=== PATIENT | female | born 1990 | race Caucasian/White ===

== ENCOUNTER → 2017-02-22 | Outpatient (CLI) | payer OTHER ==
[2017-02-22 17:08] LABS: BASOPHILS # (AUTO) 0.02 10*3/UL; BASOPHILS % (AUTO) 0.2 % (0-1); EOSINOPHILS # (AUTO) 0.31 10*3/UL; EOSINOPHILS % (AUTO) 2.9 % (0-8); HEMATOCRIT 40.6 % (37.0-47.0); HEMOGLOBIN 13.3 g/dL (12.0-16.0); LYMPHOCYTES # (AUTO) 1.89 10*3/uL; MEAN CORPUSCULAR HEMOGLOBIN 28.1 PG (27-31); MEAN CORPUSCULAR HGB CONC 32.8 g/dL (33-37); MEAN CORPUSCULAR VOLUME 85.8 FL (81-99); MEAN PLATELET VOLUME 9.2 FL (7.4-12.2); MONOCYTES # (AUTO) 0.76 10*3/UL (0.3-0.8); NEUTROPHILS # (AUTO) 7.84 10*3/UL; NEUTROPHILS % (AUTO) 72.3 % (50-80); RED BLOOD COUNT 4.73 10^6/uL (4.20-5.40)
[2017-02-22 17:09] LABS: PLATELET MORPHOLOGY COMMENT NORMAL MORPHOLOGY (NORM); RBC MORPHOLOGY COMMENT NORMAL MORPHOLOGY (NORM); WBC MORPHOLOGY COMMENT NORMAL MORPHOLOGY (NORM)
[2017-02-22 17:46] LABS: HIV ANTIBODY NEGATIVE (N); HIV-1 P24 ANTIGEN NEGATIVE (N)
[2017-02-22 18:09] LABS: BLOOD UREA NITROGEN 11 mg/dL (7-22); BUN/CREATININE RATIO 18.33 (6-20); CALCIUM 9.9 mg/dL (8.7-10.7); EST GLOMERULAR FILTRATION > 60 (>60 ml/min/1.73m(2)); SERUM ALBUMIN 4.3 g/dL (3.5-4.8)
== END ==
LOC: MOB LAB 16:07
PROVIDERS: ATTEND Student in an Organized Health Care Education/Training Program
DX: R10.84 Generalized abdominal pain (principal); R53.83 Other fatigue; R63.5 Abnormal weight gain; Z11.3 Encounter for screening for infections with a predominantly sexual mode of transmission
CPT/HCPCS: 36415; 80053; 82306; 84443; 85025; 86703; 86780; 86803

== ENCOUNTER → 2017-02-24 | Outpatient (CLI) | payer OTHER ==
--- NOTE | 2017-02-24 16:38 | DI ---
US PELVIC-TRANSVAGINAL, US PELVIC COMPLETE (NON OB),02/24/2017 1:59 PM: Clinical History: Menometrorrhagia Previous Exam: October 12, 2006 Findings: Multiple transabdominal and endovaginal grayscale and color Doppler sonographic images are obtained t hrough the pelvis demonstrating a normal uterus. The cervix is long and closed measuring 4 cm in vipul th. The endometrial stripe measures 11 mm. The uterus measures 8.9 x 4.1 x 4.8 cm with normal shape. The right ovary measures 3.8 x 2.2 x 2.4 cm with normal Doppler flow. The left ovary measures 2.9 x 2.6 x 3.5 cm also with a normal sonographic appearance. Impression: Normal pelvic ultrasound.
== END ==
LOC: US 13:47
PROVIDERS: ATTEND Student in an Organized Health Care Education/Training Program
DX: N92.1 Excessive and frequent menstruation with irregular cycle (principal); R10.30 Lower abdominal pain, unspecified
CPT/HCPCS: 76830; 76856

== ENCOUNTER 2017-05-08 11:55 | Emergency (ER) | payer OTHER ==
[2017-05-08 12:06] VITALS: RESP 16; TEMP 98.3
--- NOTE | 2017-05-08 12:19 | PDOC ---
Foot / Ankle Injury - General Chief Complaint: Lower Extremity Problem/Injury Stated Complaint: injuried left foot Date Seen by Provider: 05/08/17 Time Seen by Provider: 12:00 Source: POSITIVE: Patient Exam Limitations: POSITIVE: No limitations Nurse's Notes Reviewed & Considered: Yes - History of Present Illness Initial Comments: The patient is a 27-year-old female who presents to the emergency department with left foot and ankle pain. She states that last night she tripped on a short stairway and fell twisting her left foot and ankle. Since then she has been unable to bear much weight on the left foot and ankle and has pain with any range of motion. She has been taking ibuprofen as well as some leftover hydrocodone without any pain relief. She denies any other associated injuries or complaints. Have you received a tetanus shot in the past 10 years?: Yes - Patient Allergies Allergies/Adverse Reactions: Allergies Allergy/AdvReac Type Severity Reaction Status Date / Time No Known Allergies Allergy Verified 05/08/17 11:58 - Patient Home Medications Home Medications: Home Medications Esomeprazole Magnesium [Nexium 24hr] 1 cap PO DAILY cap 05/03/17 Multivitamin [Multi-Vitamin Daily] 1 each PO DAILY tab 05/03/17 HYDROcodone/APAP 7.5/325 Tab [Highland 7.5/325 Tab] 1 each PO Q6H PRN #10 tablet 05/08/17 Past Medical History - heen HEENT History: Other (please comment) Additional HEENT History: contacts Cardiovascular History: Denies History Respiratory History: Denies History Gastrointestinal History: GERD, Other (please comment) Additional Gastrointestinal History: some heartburn, see home meds Genitourinary History: Kidney Stones Additional Genitourinary History: HAD SURGERY TO REMOVE KIDNEY STONE Endocrine History: Denies History Musculoskeletal History: Denies History Prosthesis or Implant: No Neurological History: Denies History Blood Disorders: Denies History Psychiatric History: Depression Additional Psychiatric History: TREATED FOR DEPRESSION 10 YEARS AGO. History of Sexually Transmitted Diseases: No Female Reproductive History: Denies History Obstetrical History: Denies History Cancer History: Denies History In Past Year Been Physically Harmed or Verbally Threatened: No History of MDRO: No History of Other Communicable Diseases: No Tobacco Use: Current Every Day Smoker Alcohol Use: Occasionally Substance Use Type: None Previous Surgical History: Yes Type / Date of Surgery: kidney stone removed; tubes tied;. RHINOPLASTY, APPY Anesthesia Reactions: No Malignant Hyperthermia: No Significant Family History: Heart disease, Cancer, Diabetes, Other (please comment) Additional Family History: thyroid issues, breast ca, cervical ca Past Medical History Reviewed: Reviewed - No Changes ROS - Limitations ROS Limitations: No Limitations (Review of systems otherwise noncontributory) Foot / Ankle Exam - General Appearance General Appearance: POSITIVE: Alert, Cooperative, No Acute Distress - Extremities Foot: POSITIVE: Other (examination left foot does reveal some tenderness to the lateral aspect of the midfoot, no obvious swelling or deformity, normal cap refill and sensation in her toes) Ankle: POSITIVE: Other (examination of the ankle on the left reveals swelling over the lateral malleolus with associated tenderness over the talofibular leg movement, no medial tenderness, no tenderness proximal in the leg) Gait: POSITIVE: Limited by Pain Neuro: POSITIVE: Sensation Normal, Motor Normal Vascular: POSITIVE: No Vascular Compromise Foot / Ankle Progress - Results Reviewed by me Radiology Findings: X-ray of the left foot reveals a likely avulsion fraction of the midfoot. X-ray of the ankle reveals a small rounded calcification just distal to the distal tibia over the medial malleolus with no evidence of fracture or dislocation. - Patient's Progress MDM / ED Course: X-ray of her left foot does reveal what appears to be an avulsion fracture of the mid foot likely caused secondary to sprain. She was placed in a cam walker boot for comfort. She has crutches that she can use to assist with ambulation. She was advised that she can bear weight as tolerated. She will continue ice and elevation as well as ibuprofen 600 mg every 6 hours as needed for pain. She was also given Highland 7.5/325 which she can take as needed for severe pain. She is advised return to the emergency room if she develops increased pain or numbness, worsening or change in symptoms. She is advised follow-up with orthopedic surgery in 3-5 days. - Consult Counseled: POSITIVE: Patient, RE: Radiology Results, RE: DX, RE: Need for F/U Patient Care Time - Estimated PCT Patient Care Time (In Minutes): 20 Vital Signs - Recent Vital Signs Vital Signs: Vital Signs (Last 8 hours) Temp Pulse Resp BP Pulse Ox 05/08/17 11:57 98.3 F 67 16 130/62 97 - VS Reviewed Vital Signs Reviewed: Yes Discharge Clinical Impression: Sprain of ankle, Foot sprain Discharge Disposition: Discharged to Home Condition: Good Prescriptions / Orders: HYDROcodone/APAP 7.5/325 Tab [Highland 7.5/325 Tab] 1 each PO Q6H PRN #10 tablet PRN Reason: Pain Patient Instructions Given at Discharge: Ankle Sprain (ED), Foot Sprain (ED) Additional Instructions: The x-ray of your foot does reveal a small chip fracture in one of the bones on her foot which is most likely secondary to a sprain (ligament injury). There was no obvious fracture in the ankle on x-ray. Recommend Cam Walker boot. Crutches to assist with ambulation as needed. You can bear weight as tolerated. Ice and elevate the left foot. Continue ibuprofen 600 mg every 6 hours as needed for pain. Highland 7.5/325 one every 6 hours as needed for pain. Return to the emergency room if increased pain, numbness, worsening or change in symptoms. Recommend follow-up with orthopedics (Dr. Norman), call tomorrow to schedule follow-up. Follow Up With: DANICA VILLALTA [Primary Care Provider] -
--- NOTE | 2017-05-08 21:57 | DI ---
XR ANKLE COMPLETE MIN 3VW,05/08/2017 12:02 PM: Clinical History: Fell downstairs with left ankle pain. Previous Exam: None at this facility. Findings: 3 views of the left ankle are obtained, and demonstrate anatomic alignment without fractures. There i s mild prominence of the surrounding soft tissues. Impression: No fracture.
--- NOTE | 2017-05-08 22:22 | DI ---
XR FOOT COMPLETE MIN 3VW,05/08/2017 12:02 PM: Clinical History: Fell down stairs. Previous Exam: None at this facility. Findings: 3 views of left foot are obtained, and demonstrate anatomic alignment without fractures. There is a 1 3 x 6 mm density involving the first metatarsal most consistent with a bone island. There is a narrow zone of transition and no evidence of periosteal reaction or soft tissue mass or cortical breakthrou gh. Surrounding soft tissues are unremarkable. Impression: 1. 13 x 6 mm density involving the cortex of the left first metatarsal most consistent with a bone is land. If there is no tenderness to palpation over this area, this can likely be ignored is a benign f inding.
== END 2017-05-08 13:22 | disposition home or self-care (01) ==
LOC: ER 11:55
DX: S93.402A Sprain of unspecified ligament of left ankle, initial encounter (principal); S93.602A Unspecified sprain of left foot, initial encounter; W10.8XXA Fall (on) (from) other stairs and steps, initial encounter
CPT/HCPCS: 73610; 73630; 99282

== ENCOUNTER 2017-06-20 06:47 | Observation (INO) | payer OTHER ==
[~2017-06-20 06:47] MED LIST: LIDOCAINE W/ SODIUM BICARB 0.5 ML SYR ONE; Lactated Ringers 1,000 ML PRIMARY IV ONE; Sodium Chloride 0.9% 100 ML IV ONE
[2017-06-20] MEDS ORDERED: BUPIVACAINE 0.25% W/ EPI - 10 ML VIAL ONE (06:55)
[2017-06-20] MEDS ORDERED: LIDOCAINE HCL 2 % 10 ML JELLY URO-JECT TOPICAL ONE (06:56)
[2017-06-20 07:05] LABS: URINE SPECIFIC GRAVITY - MAN 1.022
[2017-06-20] MEDS ORDERED: ROCURONIUM 10 MG/1 ML - 5 ML VIAL IVP ONE (07:06)
[2017-06-20] MEDS ORDERED: fentaNYL Inj 250 MCG/5 ML VIAL ONE (07:08)
[2017-06-20] MEDS ORDERED: MIDAZOLAM 5 MG/1 ML ONE (07:08)
[2017-06-20] MEDS ORDERED: LIDOCAINE MPF 2% - 5 ML (20 MG/1 ML) ONE (07:09)
[2017-06-20 07:35] LABS: HEMOGLOBIN 14.1 g/dL (12.0-16.0); MEAN CORPUSCULAR HEMOGLOBIN 29.3 PG (27-31); MEAN CORPUSCULAR HGB CONC 34.4 g/dL (33-37); MEAN CORPUSCULAR VOLUME 85.1 FL (81-99); MEAN PLATELET VOLUME 9.5 FL (7.4-12.2); RED BLOOD COUNT 4.82 10^6/uL (4.20-5.40)
[2017-06-20] MEDS ORDERED: LIDOCAINE W/ SODIUM BICARB 0.5 ML SYR ONE (07:40)
[2017-06-20] MEDS ORDERED: Lactated Ringers 2,000 ML PRIMARY IV ONE (08:16)
[2017-06-20] MEDS ORDERED: ePHEDrine Inj 50 MG/ML AMP ONE (08:35)
[2017-06-20] MEDS ORDERED: Sodium Chloride 0.9% vial 10 ML ONE (08:38)
[2017-06-20] MEDS ORDERED: PHENYLEPHRINE 10,000 MCG/1 ML VIAL ONE (08:38)
[2017-06-20 08:52] LABS: BILIRUBIN,URINE NEGATIVE (NEG); CLARITY,URINE CLEAR (CLEAR); COLOR,URINE YELLOW; GLUCOSE, URINE (UA) NEGATIVE (NEG); NITRATE,URINE NEGATIVE (NEG); OCCULT BLOOD,URINE Trace-intact (NEG); PROTEIN,URINE NEGATIVE (NEG); UROBILINOGEN,URINE 0.2 mg/dL (0.2)
[2017-06-20] MEDS ORDERED: KETAMINE 100 MG/1 ML - 5 ML ONE (08:56)
[2017-06-20 09:01] LABS: SQUAMOUS EPITHELIAL CELL,UR RARE; URINE SAMPLE TYPE CATH SPECIMEN
[2017-06-20] MEDS ORDERED: Opium-Belladonna 60-16.2mg 1 EACH SUPP.RECT RECTAL ONE (09:07)
[2017-06-20] MEDS ORDERED: ONDANSETRON 4 MG/2 ML VIAL ONE (09:27)
[2017-06-20] MEDS ORDERED: KETOROLAC 30 MG/1 ML VIAL ONE (09:27)
[2017-06-20] MEDS ORDERED: SUGAMMADEX SODIUM 200 MG/2 ML VIAL IV ONE (09:27)
[2017-06-20] MEDS ORDERED: HYDROmorphone 2 MG/1 ML ONE (09:36)
[2017-06-20] MEDS ORDERED: Lactated Ringers 1,000 ML PRIMARY IV ONE (10:14)
[2017-06-20] MEDS ORDERED: GLYCOPYRROLATE 0.2 MG/1 ML VIAL ONE (10:27)
--- NOTE | 2017-06-20 10:42 | OB.OP.NOTE ---
Operative Report Surgeon: Stephen Four H Agent: Michael Yarbrough MD Anesthesia Type: General, Local (For acrochordon or skin tag) Anesthesia Provider: Cy Ramirez CRNA Surgery Date: 06/20/17 Preoperative Diagnosis: Menometrorrhagia, dysmenorrhea, pelvic pain, dyspareunia ;. skin tag that occasionally bleeds with shaving;. Patient desires definitive management with hysterectomy. Patient desires removal of skin tag Postoperative Diagnosis: Same Procedure: Robotic-assisted laparoscopic hysterectomy, bilateral salpingectomy, lysis of dense adhesions from bowel to cornua of uterus bilaterally. Cystoscopy. Excision of acrochordon left groin Estimated Blood Loss (mL): 75 Fluids: 2200 mL in operating room. 2000 mL in PACU prior to operating room. 500 mL of urine in operating room Complications: None apparent No evidence of bowel or bladder injury Of note, patient did acquire a first-degree significant sunburn on the upper thighs bilaterally the day before surgery when she spent the day at the [facility]. No blistering-therefore no second-degree sunburn noted. Slightly tender to palpation but no extreme edema of upper thighs noted prior to or post surgery. SCDs were used starting before surgery and before anesthesia. Findings at Surgery: Dense adhesions from bowel and adipose tissue to cornua bilaterally Ovaries appeared normal, white glistening pre-and post hysterectomy. Right ovarian cyst noted Cystoscopy showed good spill from ureteral orifices in the bladder on right and left side and good bubble at bladder dome noted. Small acrochordon excised using local anesthetic at end of procedure Indications for the Procedure: The patient is a 27-year-old 0-2 LMP 06/02/2017 using a bilateral tubal ligation for contraception who presents today for hysterectomy for menometrorrhagia and dysmenorrhea. Since that time, patient has thought about her options that we discussed for management and the patient has decided that she would like a hysterectomy for definitive management for her menometrorrhagia and dysmenorrhea as well as the patient brought up today that she has some chronic pelvic pain that can be positional and also significant dyspareunia or pain with intercourse. The patient states that she often has pelvic pain even not during her menses and she has pain with intercourse that at times can be positional but other times it is not and is every time. Therefore the patient has thought about her options and a hysteroscopy D&C with endometrial ablation was initially thought to be her choice for taking care of her MMR but since we have spoken in April 2017, the patient has decided upon definitive management. The patient has spoken with many of her friends and her mother who has had a hysterectomy and has decided that this would be the best route for her. The patient did watch a couple of YouTube videos showing a hysterectomy and a robotic-assisted laparoscopic hysterectomy and decided that this is the route she would like to go. The patient also has a small skin tag in her left groin that often bleeds when she shaves in that area or gets caught on her underwear. She would like this excised. Description of Procedure: The patient was brought to the operating room after the risks, benefits, alternatives and indication of a robotic laparoscopic hysterectomy and bilateral salpingectomy and excision of skin tag or acrochordon was discussed with the patient. Of specific note, the patient spent the day at the [facility] yesterday and acquired a first-degree sunburn of her upper legs bilaterally. No blisters. We discussed that if her sunburned did cause blistering, she may have increased pain in the low risk for infection. Patient expressed understanding. We discussed this for several minutes and decided to proceed with a hysterectomy. The patient was brought to the operating room and placed on the operating table. The patient underwent general endotracheal anesthesia without complications. The patient was placed in yellowfin stirrups. SCDs had RD been placed and started. An exam under anesthesia was completed and her cervix and uterus were palpated. Additionally, 200 g of Cytotec that was placed by the patient the night before was removed. Of note, the patient also did place a scopolamine patch behind her left ear. The patient was prepped and draped in a sterile fashion. A timeout was completed and the patient and procedures were identified. Attention was turned to the patient's perineum. A Palafox catheter was inserted through the patient's urethra. Clear yellow urine streamed through the Palafox catheter. A weighted speculum was placed posteriorly and a Jovita retractor was placed anteriorly and the cervix was visualized and a single-tooth tenaculum was placed on the anterior lip of the cervix. The uterus was sounded to 8-1/2 cm. An 8 cm balloon was chosen for the uterine manipulator. A medium collar was chosen in viewing the cervix. The uterine retractor was assembled and then placed through the patient's cervix and the balloon was insufflated. I then placed the collar around the patient's cervix. I checked to ensure that the collar was 360 circumferentially around the patient's cervix and it was. Gloves were removed and changed. Attention was then turned to the patient's abdomen. Local anesthetic was injected infraumbilically. A vertical incision was made infraumbilically. Under direct visualization with the scope in place, the trocar and sleeve was placed infraumbilically into the abdomen. The trocar was removed and the scope was placed again and we were intra-abdominal. CO2 gas was insufflated and the patient was placed in Trendelenburg. Attention was then turned to the right lateral sidewall and the skin was injected with the local anesthetic and then an incision was made and then under direct visualization a trocar and sleeve was placed. The sleeve was left in place and the trocar removed. The same was done on the left lateral sidewall. We then took the scope and placed it through the left lateral sidewall port and visualized the infraumbilical port and there were no adhesions and no bowel adhesions. The robot was then moved into position. The robot was docked with the infraumbilical port for the scope and then the right and left lateral sidewall ports. The monopolar scissors was placed in the right lateral port and the bipolar gyrus was placed in the left lateral port. The above was done under direct visualization. I then went over to the operating console. Photographs were taken. Adhesions of bowel to the left and right cornea were noted. Actually the bowel was not adhesed to the cornua but some fatty tissue from the bowel was actually attached. The right ovary was noted to have a cyst present. The left ovary was noted to be normal. Both were normal with white glistening in appearance. After the photographs were taken, the bipolar gyrus was used to cauterize the adhesions to the left cornua and then the monopolar scissors were used to remove the adhesions and then the bowel and fatty tissue was allowed to drop out of the way. There did not appear to be any instance where I was close to the bowel during cautery. The same was done on the right cornua although the adhesion was not quite as dense. The left fallopian tube was then identified including the fimbria. The fallopian tube was adhesed to the left ovary. The adhesions were taken down and the left fallopian tube which was status post a tubal ligation was almost completely excised but left in place secondary to not being able to remove the fallopian tube all the way to the cornua secondary to being status post a bilateral tubal ligation. The fallopian tube would later be removed after the hysterectomy was completed and the uterus was removed so that the fallopian tube would not be lost in the pelvis. After removal of the left fallopian tube, the left ovary still appeared vascular and was hemostatic. Attention was then turned to the right fallopian tube. Again, the fallopian tube was adhesed to the ovary but not quite as extensive. The fallopian tube was excised all the way to the cornua and remained in place. The right ovary appeared intact and vascular with white glistening. The round ligament on the patient's left side was then cauterized and then incised. Then the utero-ovarian complex was cauterized and incised. The ovary was free and would be spared. The round ligament on the patient's right side was then cauterized and then incised. The utero-ovarian complex was cauterized and incised. The right ovary was free and would be spared also. The uterine vessels on the left side of the uterus were skeletonized and bovied. The same was done on the right side of the uterus where the vessels were skeletonized and bovied. Using the Martha ring to identify where the cervix was and the cervical vesicle tissue, a bladder flap was created. Then, the uterine vessels on the right left side were then skeletonized more and bovied. There was good hemostasis. At this time, a vaginal incision was made anteriorly and the blue Martha ring was visualized. The incision was made 180 to 9:00 and the 3:00 anteriorly. The uterus was then anteflexed and the vaginal incision was made posteriorly and the Martha ring was then visualized. The vaginal incision was then made 180 posteriorly and therefore 360 circumferentially. The uterus and cervix as well as the right fallopian tube was then removed through the vagina. The left fallopian tube was then removed/excised/cauterized from the last remaining small amount of tissue that it was attached to and then the left fallopian tube was also removed through the patient's vagina. All would be sent to pathology. Along the posterior cuff, a few areas were bovied secondary to bleeding. There was relatively good hemostasis. The suction wet cleaner machine was then placed through the right lateral port and irrigation was completed and then suction of the fluid. A 0-V lock suture 9 inch was placed through the vagina and then the vaginal cuff was closed allowing for good hemostasis. The V lock suture was used to close the vaginal cuff in the usual fashion. From the left side to the right side and then back to the midline. There appeared to be good hemostasis. The ovaries were visualized and photographs were taken and they appeared viable. The cuff was examined and there was good hemostasis. From the vaginal side, there was no bleeding and only minimal dark old blood was noted with a gentle sponge stick swab. A B&O suppository was placed. Xylocaine was placed in the patient's urethra for the cystoscopy after the Palafox catheter was removed. Gowns and gloves were changed. Attention was turned to the patient's abdomen. The robot was undocked. The scope was placed in the lateral port and a grasper was placed in the infraumbilical port and the needle from the V lock suture was visualized and grasped and removed through the infraumbilical port. Attention was then turned to the ports that were left in place. Gas was turned off. CO2 gas was allowed to escape through the 3 ports and then the ports were removed. S hook retractors were then used to visualize the fascia infraumbilically. 0 Vicryl suture on a UR 6 needle was used to place a [id number] suture through the fascia that was grasped with small Slemp clamps. The Arthur clamps were then removed and the [id number] suture was tied and there was good closure of the fascia. Then 4-0 Monocryl suture was used to close the subcutaneous tissue after cleaning the 3 port sites. Then 2-0 Stratafix suture was used to close the subcuticular sites 3. Then Steri-Strips and dressings were applied. A cystoscopy was completed. Indigo carmine was not injected. After several minutes, good spill from the left and right ureteral orifice was visualized into the bladder. Also, the bladder dome had a good bubble therefore signifying that the bladder was intact. The bladder was allowed to empty via the cystoscope. The cystoscopy was completed noting that there was good spill. The acrochordon that was in the patient's left groin was identified. The area was injected with local. I then excised the acrochordon and then put one simple interrupted suture of 4-0 Monocryl to allow for hemostasis and approximation of the skin. The acrochordon would be sent to pathology. The procedure was completed. Punch lap and needle counts were correct 2. The patient was awakened from her general endotracheal anesthesia without complication. The patient was brought to the PACU in stable condition. Of significant note, anesthesia noted that there was some bradycardia and with the heart rate below 50, there were intermittent PVCs and a right bundle-branch block was noted intermittently. Robinul was administered and the patient's heart rate increased to around 100 which was expected and the right bundle branch block resolved. This will be followed as the patient will be admitted for 23 hour observation. I will speak with the hospitalist. Plan: Of note, anesthesia noted that there was some bradycardia and with the heart rate below 50, there were intermittent PVCs and a right bundle-branch block was noted intermittently. Robinul was administered and the patient's heart rate increased to around 100 which was expected and the right bundle branch block resolved. This will be followed as the patient will be admitted for 23 hour observation. I will speak with the hospitalist.
[2017-06-20] MEDS ORDERED: NORMAL SALINE 10 ML SYRINGE FLUSH IVP PRN ×2 (10:53→11:15)
[2017-06-20] MEDS ORDERED: PROMETHAZINE 25 MG/1 ML VIAL IM PRN (10:53)
[2017-06-20] MEDS ORDERED: HYDROmorphone 2 MG/1 ML IVP PRN ×2 (10:53→13:05)
[2017-06-20] MEDS ORDERED: fentaNYL Inj 100 MCG/2 ML VIAL IVP PRN (10:53)
[2017-06-20] MEDS ORDERED: Lactated Ringers 1,000 ML PRIMARY IV SCH (11:15)
[2017-06-20] MEDS ORDERED: Ondansetron ODT Tab 8 MG TAB PO PRN (11:15)
[2017-06-20] MEDS: HYDROcodone-APAP 5 MG -325 MG TABLET PO PRN ×2 (12:18→20:12)
[2017-06-20] MEDS ORDERED: Promethazine Tab 25 MG TAB PO PRN (13:07)
[2017-06-20] MEDS: KETOROLAC 15 MG/1 ML VIAL IVP PRN (16:46)
[2017-06-20] MEDS: DOCUSATE 100 MG CAPSULE PO SCH (20:12)
--- NOTE | 2017-06-20 21:48 | PDOC(PROG) ---
Subjective Post Op Day: 0 Pain Management: PO (And/or IV Dilaudid) Palafox Catheter: No Ambulating: Yes Concerns / Additional Information: Patient is currently sleeping. I spoke with the nurse. The patient has ambulated to the restroom and is voiding well. Her last pain scale was 2 out of 10. Objective - General General Appearance: POSITIVE: No Acute Distress (Patient sleeping. I did not wake her up.) Assesstment / Plan Assessment / Plan: Assessment: Postoperative day #0 status post robotic-assisted laparoscopic hysterectomy and bilateral salpingectomy, lysis of adhesions and cystoscopy as well as excision of acrochordon. Plan: Continue care CBC and BMP in the morning Reevaluate in the morning for probable/hopeful discharge in the morning to home.
[2017-06-21] MEDS: HYDROcodone-APAP 5 MG -325 MG TABLET PO PRN ×2 (02:14→07:37)
[2017-06-21 05:28] LABS: BLOOD UREA NITROGEN 9 mg/dL (7-22); BUN/CREATININE RATIO 12.85 (6-20); CALCIUM 8.6 mg/dL (8.7-10.7); EST GLOMERULAR FILTRATION > 60 (>60 ml/min/1.73m(2))
[2017-06-21 05:31] LABS: BASOPHILS # (AUTO) 0.01 10*3/UL; BASOPHILS % (AUTO) 0.1 % (0-1); EOSINOPHILS # (AUTO) 0.15 10*3/UL; EOSINOPHILS % (AUTO) 1.9 % (0-8); HEMATOCRIT 36.6 % (37.0-47.0); HEMOGLOBIN 11.9 g/dL (12.0-16.0); LYMPHOCYTES # (AUTO) 1.62 10*3/uL; MEAN CORPUSCULAR HEMOGLOBIN 28.4 PG (27-31); MEAN CORPUSCULAR HGB CONC 32.5 g/dL (33-37); MEAN CORPUSCULAR VOLUME 87.4 FL (81-99); MEAN PLATELET VOLUME 9.6 FL (7.4-12.2); MONOCYTES # (AUTO) 0.62 10*3/UL (0.3-0.8); MONOCYTES % (AUTO) 7.7 % (5-15); NEUTROPHILS # (AUTO) 5.64 10*3/UL; NEUTROPHILS % (AUTO) 70.1 % (50-80); PLATELET MORPHOLOGY COMMENT NORMAL MORPHOLOGY (NORM); RBC MORPHOLOGY COMMENT NORMAL MORPHOLOGY (NORM); RED BLOOD COUNT 4.19 10^6/uL (4.20-5.40); WBC MORPHOLOGY COMMENT NORMAL MORPHOLOGY (NORM)
[2017-06-21 06:33] VITALS: RESP 18; TEMP 98
[2017-06-21] MEDS: DOCUSATE 100 MG CAPSULE PO SCH ×2 (07:54→09:24)
[2017-06-21] MEDS: KETOROLAC 15 MG/1 ML VIAL IVP PRN (07:54)
--- NOTE | 2017-06-21 08:06 | PDOC(PROG) ---
Subjective Post Op Day: 1 Pain Management: PO (IV Toradol) Palafox Catheter: No Flatus: No Diet: Regular Ambulating: Yes Concerns / Additional Information: The patient states she is feeling much better this morning. She would like to go home. Objective - General General Appearance: POSITIVE: No Acute Distress, Cooperative - Cardiovacular Cardiovascular Exam: POSITIVE: RRR Edema: No Pedal Edema Extremities: Negative Saúl's - Bilaterally - Respiratory Respiratory Exam: POSITIVE: Clear to Auscultation - Bilaterally - Abdomen Bowel Sounds: Present Abdominal Wound Assessment: Well Approximated, Asymptomatic Other Abdominal Exam Details: Soft, no guarding, appropriately tender Assesstment / Plan Assessment / Plan: Assessment: Postoperative day #1 status post robotic-assisted laparoscopic hysterectomy, bilateral salpingectomy, cystoscopy, lysis of adhesions, and excision of acrochordon. H&H good and white count normal. Creatinine was 0.7. Plan: Discharge home Ibuprofen 800 mg 1 by mouth 3 times a day with food or milk for 5 days then 3 times a day as needed Colace 100 mg 1 by mouth daily to twice a day when necessary constipation- please keep stools soft but not loose. Hydrocodone/Tylenol 5/325 one to 2 by mouth every 6 hours when necessary pain Silverlon dressings applied to 3 incision sites. If dressings start to peel off, take dressing off completely. Return to clinic to see me early next week on Tuesday or Tuesday-please schedule appointment Usual postoperative precautions. Return to clinic or emergency room for fever, chills, increasing abdominal pain, wound drainage, or any other problems. Pelvic rest-no intercourse for at least 8 weeks to 10 weeks. Follow-up with me at 6-8 weeks for a postoperative check.
== END 2017-06-21 09:27 | disposition home or self-care (01) ==
LOC: SDSC 06:47 → MED/SURG 10:45
PROVIDERS: ADMIT Obstetrics & Gynecology; ATTEND Obstetrics & Gynecology
DX: N92.1 Excessive and frequent menstruation with irregular cycle (principal); N94.6 Dysmenorrhea, unspecified; R10.2 Pelvic and perineal pain; N94.10 Unspecified dyspareunia; L91.8 Other hypertrophic disorders of the skin
CPT/HCPCS: 11200; 52000; 58552; 80048; 81001; 84703; 85025; 85027; 96374; A4216; J0694; J1170; J1885 ×3; J2001; J2250; J2370; J2405; J2704; J3010; J7050; J7120